=== PATIENT | male | born 1990 | race Caucasian/White ===

== ENCOUNTER 2017-04-12 20:19 | Emergency (ER) | payer SELFPAY ==
[2017-04-13 00:18] VITALS: BP 119/85
== END 2017-04-13 00:18 | disposition home or self-care (01) ==
LOC: ED 20:19
DX: M54.9 Dorsalgia, unspecified (principal); V00.131A Fall from skateboard, initial encounter; Y93.89 Activity, other specified; Y92.89 Other specified places as the place of occurrence of the external cause; Y99.8 Other external cause status
CPT/HCPCS: J1885